=== PATIENT | male | born 1995 | race Hispanic/Latino ===

== ENCOUNTER 2016-07-17 11:09 | Observation (INO) | payer BC ==
[2016-07-17] MEDS ORDERED: Iohexol 240 (50 ml) PO STA (11:41)
[2016-07-17] MEDS ORDERED: Sodium Chloride 0.9% 1,000 ML IV STA ×2 (11:42→18:07)
--- NOTE | 2016-07-17 11:46 | ED PDOC ---
HPI: Abdomen Time Seen by Provider: 07/17/16 11:31 Chief Complaint (Nursing): Abdominal Pain Chief Complaint (Provider): Diarrhea History Per: Patient History/Exam Limitations: no limitations Onset/Duration Of Symptoms: Days (4) Outside of [place] travel?: Yes Other Location:: [facility] Current Symptoms Are (Timing): Still Present Context: Travel Location Of Pain/Discomfort: Other (Lower) Quality Of Discomfort: Cramping Associated Symptoms: Fever, Chills, Diarrhea, Back Pain. denies: Nausea, Vomiting Last Bowel Movement: Today Additional Complaint(s): Pt reports multiple episodes of diarrhe that started while in [facility] 4 days ago, now with fever and chills, and blood in BM. Reports diarrhea q20 minutes associated with crampy lower abdominal pain. Denies nausea , vomiting. Pt took Motrin last PM and Nexium today. Past Medical History Reviewed: Nursing Documentation, Vital Signs Vital Signs: Last Vital Signs Temp 98.5 F 07/17/16 19:35 Pulse 82 07/17/16 19:35 Resp 17 07/17/16 19:35 BP 134/76 07/17/16 19:35 Pulse Ox 99 07/17/16 19:35 - Medical History PMH: No Chronic Diseases - Surgical History Surgical History: Appendectomy - Family History Family History: States: Unknown Family Hx - Living Arrangements Living Arrangements: Alone - Social History Current smoker - smoking cessation education provided: No Alcohol: None - Immunization History Hx Tetanus Toxoid Vaccination: No Hx Influenza Vaccination: No Hx Pneumococcal Vaccination: No - Home Medications Home Medications: Ambulatory Orders Medication Instructions Recorded Ciprofloxacin [Cipro] 500 mg PO BID #19 tab 07/17/16 Dicyclomine [Bentyl] 20 mg PO QID PRN #10 tab 07/17/16 Esomeprazole Magnesium [Nexium] 40 mg PO DAILY 07/17/16 Ibuprofen [Motrin Tab] 600 mg PO PRN PRN 07/17/16 Metronidazole [Flagyl] 500 mg PO TID #29 tablet 07/17/16 Ondansetron ODT [Zofran ODT] 4 mg PO Q8H PRN #20 odt 07/17/16 traMADol [Ultram] 50 mg PO TID PRN #15 tab 07/17/16 - Allergies Allergies/Adverse Reactions: Allergies Allergy/AdvReac Type Severity Reaction Status Date / Time No Known Allergies Allergy Verified 07/17/16 11:20 Review of Systems Constitutional: Positive for: Fever, Chills, Sweats Respiratory: Negative for: Cough, Shortness of Breath Gastrointestinal: Positive for: Abdominal Pain, Diarrhea, Hematochezia. Negative for: Nausea, Vomiting Genitourinary Male: Negative for: Dysuria, Hematuria Musculoskeletal: Positive for: Back Pain Neurological: Negative for: Altered Mental Status, Headache, Dizziness Physical Exam - Reviewed Nursing Documentation Reviewed: Yes Vital Signs Reviewed: Yes - Physical Exam Appears: Positive for: Well, No Acute Distress Skin: Positive for: Normal Color, Warm, Dry Cardiovascular/Chest: Positive for: Tachycardia Respiratory: Positive for: Normal Breath Sounds. Negative for: Rales, Rhonchi, Wheezing Gastrointestinal/Abdominal: Positive for: Soft, Tenderness (Generalized (>LLQ)) . Negative for: Distended, Guarding, Rebound Back: Positive for: Normal Inspection Neurologic/Psych: Positive for: Alert, Oriented - Laboratory Results Result Diagrams: 07/17/16 11:46 07/17/16 11:46 - ECG O2 Sat by Pulse Oximetry: 100 - CT Scan/US CT abd/pelvis Other Rad Studies (CT/US): Radiology Report Reviewed (Moderate left colon wall thickening and mild ascending and transverse colon wall thickening consistent with colitis. The differential diagnosis includes infection or inflammatory colitis. Splenomegaly measures up to 15.2 centimeter. 9 millimeter nonobstructing calculus at the mid to upper pole left kidney. No evidence of hydronephrosis. Mesenteric adenitis.) - Progress Condition: Improved - Physician Consult Information Physician Contacted: Jesus Chawla Outcome Of Conversation: Case discussed with Dr. Chawla (covering for Dr. Diaz), agrees with discharge home. Medical Decision Making Medical Decision Makin yo with fever and multiple episodes of diarrhea. - labs - IVF - Tylenol - Morphine - CT abd/pelvis Dr. Tung Diaz in ED, evaluated patient. ED OBSERVATION Time of observation admission: 12:00 - Observation admission statement Patient is being placed in observation because:: Abdominal pain Disposition - Clinical Impression Clinical Impression: Colitis presumed infectious - Disposition Disposition: Routine/Home Disposition Time: 19:04 Condition: IMPROVED
[2016-07-17] MEDS ORDERED: Iohexol 240 (50 ml) ONE (11:51)
[2016-07-17 12:01] LABS: VENOUS BLOOD GAS BASE EXCESS 1.7 mmol/L (0.0-2.0); VENOUS BLOOD GAS PCO2 30 mmHg (40-60); VENOUS BLOOD PH 7.51 (7.32-7.43)
[2016-07-17 12:24] LABS: BASO % 0.3 % (0.0-2.0); EOS % 0.2 % (0.0-4.0); HEMATOCRIT 44.7 % (35.0-51.0); LYMPH # 0.5 K/uL (1.0-4.3); MEAN CELL VOLUME 90.1 fl (80.0-94.0); MEAN CORPUSCULAR HEMOGLOBIN 33.1 pg (27.0-31.0); MEAN CORPUSCULAR HGB CONC 36.7 g/dL (33.0-37.0); MONO # 0.7 K/uL (0.0-0.8); MONO % 12.6 % (0.0-10.0); NEUT % 76.9 % (50.0-75.0); RED CELL DISTRIBUTION WIDTH 12.3 % (11.5-14.5); WHITE BLOOD COUNT 5.2 K/uL (4.8-10.8)
[2016-07-17 12:27] LABS: ALB/GLOB RATIO 1.5 (1.0-2.1); ALKALINE PHOSPHATASE 81 U/L (38-126); AST/SGOT 29 U/L (17-59); BILIRUBIN,TOTAL 0.8 mg/dl (0.2-1.3); BLOOD UREA NITROGEN 8 mg/dl (9-20); CALCIUM 9.2 mg/dL (8.4-10.2); CARBON DIOXIDE 20 mmol/L (22-30); CHLORIDE 104 mmol/L (98-107); GFR AFRICAN-AMERICAN > 60; GLUCOSE,RANDOM 107 mg/dL (75-110); LIPASE 62 U/L (23-300); POTASSIUM 3.5 MMOL/L (3.6-5.0); SODIUM 143 mmol/l (132-148); TOTAL PROTEIN 7.5 G/DL (6.3-8.2)
[2016-07-17] MEDS ORDERED: Potassium Chloride 20 mEq ER Tab PO STA (12:28)
[2016-07-17 12:29] LABS: ALT/SGPT 40 U/L (21-72)
[2016-07-17 12:36] LABS: PARTIAL THROMBOPLASTIN TIME 32.7 SECONDS (23.3-32.5)
[2016-07-17] MEDS ORDERED: Potassium Chloride 20 mEq ER Tab PO ONE (13:22)
[2016-07-17 14:06] LABS: RBC URINE 1 /hpf (0-3); URINE BILIRUBIN NEGATIVE (NEGATIVE); URINE BLOOD SMALL (NEGATIVE); URINE COLOR YELLOW (YELLOW); URINE GLUCOSE (UA) NEG (Normal); URINE KETONE 80 mg/dL (NEGATIVE); URINE LEUKOCYTE ESTERASE NEG Leu/uL (Negative); URINE PROTEIN 30 mg/dL (NEGATIVE); URINE UROBILINOGEN 0.2-1.0 mg/dL (0.2-1.0); WBC URINE < 1 /hpf (0-5)
[2016-07-17] MEDS ORDERED: Iohexol 300 100 ML IJ ONE (14:44)
[2016-07-17] MEDS ORDERED: Sodium Chloride 0.9% 50 ML IV ONE (14:44)
--- NOTE | 2016-07-17 15:31 | CT ---
PROCEDURE: CT Abdomen and Pelvis with contrast HISTORY: Gen abd pain (>LLQ), fever, diarrhea COMPARISON: None. TECHNIQUE: Contrast dose: 95 cc of Omnipaque 300 Radiation dose: Total exam DLP = 1058.8 mGy-cm. FINDINGS: LOWER THORAX: Unremarkable. LIVER: Unremarkable. No gross lesion or ductal dilatation. GALLBLADDER AND BILE DUCTS: Unremarkable. PANCREAS: Unremarkable. No gross lesion or ductal dilatation. SPLEEN: [id number] splenomegaly seen. The spleen measures up to 15.2 centimeter in the largest longitudinal diameter. ADRENALS: Unremarkable. No mass. KIDNEYS AND URETERS: The kidneys enhance symmetrically. There is 9 millimeter nonobstructing calculus at the mid to upper pole left kidney. No evidence of hydronephrosis. VASCULATURE: Unremarkable. No aortic aneurysm. BOWEL: There is diffuse moderate large bowel wall thickening more prominent at the descending and distal colon consistent with colitis. The differential diagnosis includes infection or inflammatory colitis. Wall thickening of the cecum is also noted. There is no evidence of small bowel obstruction. APPENDIX: Normal appendix. PERITONEUM: Unremarkable. No free fluid. No free air. LYMPH NODES: Mildly enlarged mesenteric lymph nodes seen at the abdomen. BLADDER: Unremarkable. REPRODUCTIVE: Unremarkable. BONES: No acute fracture. OTHER FINDINGS: None. IMPRESSION: Moderate left colon wall thickening and mild ascending and transverse colon wall thickening consistent with colitis. The differential diagnosis includes infection or inflammatory colitis. Splenomegaly measures up to 15.2 centimeter. 9 millimeter nonobstructing calculus at the mid to upper pole left kidney. No evidence of hydronephrosis. Mesenteric adenitis.
[2016-07-17] MEDS ORDERED: Ciprofloxacin 400mg/200ml D5W 200 ML IV STA (16:17)
[2016-07-17] MEDS ORDERED: metroNIDAZOLE 500mg/100ml NS 100 ML IV STA (16:25)
[2016-07-17] MEDS ORDERED: Ciprofloxacin 400mg/200ml D5W 200 ML IVPB ONE (16:34)
[2016-07-17] MEDS ORDERED: metroNIDAZOLE 500mg/100ml NS 100 ML IVPB ONE (17:55)
[2016-07-17 19:36] VITALS: BP 134/76; PULSE 82; RESP 17; TEMP 98.5
[2016-07-18 18:46] VITALS: O2SAT 100
== END 2016-07-17 19:31 | disposition home or self-care (01) ==
LOC: H.ER 11:09 → H.EROBSV 12:00
PROVIDERS: ADMIT Emergency Medicine; ATTEND Emergency Medicine
DX: K52.9 Noninfective gastroenteritis and colitis, unspecified (principal)
CPT/HCPCS: 74177; 80053; 81003; 82803; 83690; 85025; 85610; 85730; 87040; 87045; 87177; 87209; 96361; 96365; 96367; 96372; 96375; 96376; 99284; G0328; G0378; J0500; J0744; J2270; J2405; J7040; Q9966; Q9967